=== PATIENT | female | born 1950 | race Caucasian/White ===

== ENCOUNTER → 2022-01-14 | Outpatient (CLI) | payer MEDICARE, OTHER ==
--- NOTE | 2022-01-14 16:02 | BD ---
EXAMINATION TYPE: Axial Bone Density DATE OF EXAM: 01/14/2022 COMPARISON: NONE CLINICAL HISTORY: 71 years year old Female. ICD-10 CODE: Z78.0 Post menopausal without HRT M89.9 Dis order of bone Height: 65 IN Weight: 197 LBS RISK FACTORS HISTORY OF: Active: YES Postmenopausal woman: AGE 52 Take estrogen and/or progesterone medications: NOT NOW How long: TOOK FOR 5 YEARS MEDICATIONS: Additional Medications: MULTI VITAMIN, HEART ARRYTHMIA MEDS, EXAM MEASUREMENTS: Bone mineral densitometry was performed using the [employer] System. Bone mineral density as measured about the Lumbar spine is: ----- L1-L4(G/cm2): 1.346 T Score Values are as follows: ----- L1: 0.4 ----- L2: 1.7 ----- L3: 1.8 ----- L4: 1.4 ----- L1-L4: 1.4 Bone mineral density BASELINE Bone mineral density about the R hip (g/cm2): 1.047 Bone mineral density about the L hip (g/cm2): 1.044 T Score values are as follows: -----R Neck: 0.1 -----L Neck: 0.0 -----R Total: 0.9 -----L Total: 0.9 Bone mineral density BASELINE FRAX%s: The graph provided illustrates a 2.3 chance for a major osteoporotic fx and a 0.2 chance for the hips probability for fx in 10 years time. IMPRESSION: Normal (Values between +1 and -1 indicate normal bone mass). Consider repeating this study in 5 year s or sooner if there is some new clinical indication. NOTE: T-SCORE=SD OF THE YOUNG ADULT MEAN.
== END | disposition home or self-care (01) ==
LOC: RADBDWWP 11:01
PROVIDERS: ATTEND Family Medicine
DX: Z12.31 Encounter for screening mammogram for malignant neoplasm of breast (principal); M89.9 Disorder of bone, unspecified; Z80.3 Family history of malignant neoplasm of breast; Z78.0 Asymptomatic menopausal state
CPT/HCPCS: 77063; 77067; 77080

== ENCOUNTER → 2023-11-08 | Outpatient (CLI) | payer MEDICARE, OTHER ==
--- NOTE | 2023-11-09 12:47 | MM ---
Reason for Exam: Screening (asymptomatic). Last mammogram was performed 1 year(s) and 10 month(s) ago. Patient History: Menarche at age 13. First Full-Term at age 40. Late child-bearing (after 30). Postmenopausal. Estrogen for 6 years, 8 months. Progesterone for 6 years, 8 months. Mother had breast cancer, age 70. Risk Values: Gosia 5 year model risk: 3.6%. NCI Lifetime model risk: 8.6%. Prior Study Comparison: 07/11/2006 Bilateral Screening Mammogram, [facility]. 02/25/2013 Bilateral Screening Mammogram, [facility]. 01/14/2022 Bilateral MG 3D screening mammo w/cad, [facility]. Tissue Density: The breasts are heterogeneously dense, which may obscure small masses. Findings: Analyzed By CAD. 3 groups of indeterminate calcifications are noted within the far posterior right breast upper outer quadrant and inner upper quadrant far posteriorly. Spot magnification compression views are recommended. Benign calcified are seen bilaterally otherwise. No distinct mass or distortion. Overall Assessment: Incomplete: need additional imaging evaluation, BI-RAD 0 Management: Diagnostic Mammogram of the right breast. . Patient should continue monthly self-breast exams. A clinical breast exam by your physician is recommended on an annual basis. This exam should not preclude additional follow-up of suspicious palpable abnormalities. Note on Gosia scores and lifetime risk: 1. A Gosia score greater than 3% is considered moderate risk. If this is the case, consider specialist referral to assess eligibility for a risk reducing agent. 2. If overall lifetime risk for the development of breast cancer is 20% or higher, the patient may qualify for future screening with alternating mammogram and breast MRI. Electronically signed and approved by: Nicolas Ritchie M.D. Radiologis
== END | disposition home or self-care (01) ==
LOC: RADMAMWWP 07:30
PROVIDERS: ATTEND Family Medicine
DX: Z12.31 Encounter for screening mammogram for malignant neoplasm of breast (principal); Z80.3 Family history of malignant neoplasm of breast; Z78.0 Asymptomatic menopausal state
CPT/HCPCS: 77063; 77067

== ENCOUNTER → 2023-11-14 | Outpatient (CLI) | payer MEDICARE, OTHER | END | disposition home or self-care (01) | LOC: RADMAMWWP 12:58 | PROVIDERS: ATTEND Family Medicine | DX: Z53.9 Procedure and treatment not carried out, unspecified reason (principal) ==

== ENCOUNTER → 2024-05-08 | Outpatient (CLI) | payer MEDICARE, OTHER ==
--- NOTE | 2024-05-08 12:07 | MM ---
Reason for Exam: Follow-up at short interval from prior study. Last screening mammogram was performed 6 month(s) ago. Patient History: Menarche at age 13. First Full-Term at age 40. Late child-bearing (after 30). Postmenopausal. Patient has history of breast feeding. Estrogen for 6 years, 8 months. Progesterone for 6 years, 8 months. Mother had breast cancer, age 70. Risk Values: Gosia 5 year model risk: 3.6%. NCI Lifetime model risk: 8.6%. Prior Study Comparison: 02/25/2013 Bilateral Screening Mammogram, [facility]. 01/14/2022 Bilateral MG 3D screening mammo w/cad, [facility]. 11/08/2023 Bilateral MG 3D screening mammo w/cad, [facility]. Tissue Density: Right: The breasts are heterogeneously dense, which may obscure small masses. Findings: Analyzed By CAD. No suspicious microcalcifications. No evidence for mass or distortion. Overall Assessment: Benign, BI-RAD 2 Management: Screening Mammogram of both breasts in 1 year. . Results were given to the patient verbally at the time of exam. Patient should continue monthly self-breast exams. A clinical breast exam by your physician is recommended on an annual basis. This exam should not preclude additional follow-up of suspicious palpable abnormalities. Note on Gosia scores and lifetime risk: 1. A Gosia score greater than 3% is considered moderate risk. If this is the case, consider specialist referral to assess eligibility for a risk reducing agent. 2. If overall lifetime risk for the development of breast cancer is 20% or higher, the patient may qualify for future screening with alternating mammogram and breast MRI. [facility], , 05/08/2024 12:04 PM. Electronically signed and approved by: Nicolas Ritchie M.D. Radiologis
== END | disposition home or self-care (01) ==
LOC: RADMAMWWP 10:29
PROVIDERS: ATTEND Family Medicine
DX: R92.2 Inconclusive mammogram
CPT/HCPCS: 77061; 77065